=== PATIENT | male | born 1960 | race Caucasian/White ===

== ENCOUNTER 2024-09-14 06:45 | Outpatient (CLI) | payer MEDICARE, SELFPAY ==
--- OUTSIDE RECORDS SUMMARY | 2024-09-14 07:07 | XMS_ITS | Clinical Summary ---
Author Organization [facility] Address [address] [place] [address] Care Team Providers Care Exterminator Helper Termite Name Role Phone Sharmin Potter Primary Care Provider [phone] Allergies No known active allergies Medications B-D 3cc Luer-Hol[place] Syr 25Gx1 3 mL 25 gauge x 1 syrgIndications:L ow testosterone Use for injecting Testosterone once weekly. 12 Each 04/10/19 Active testosterone cypionate (DEPO-TESTOSTERON E) 200 mg/mL injectionIndicati ons:Low testosterone Inject 100 mg intramuscular once weekly. 10 mL 06/06/19 Active Additional Information Patient taking differently:100 mg Intra-MuscularQ SUN, Informant: Patient's Recall, Reported on 08/27/2024 Syringe with Needle, Disp, (B-D 3cc Luer-Holland Syr 25Gx1) 3 mL 25 gauge x 1 syrgIndications:L ow testosterone As directed. 12 Each 06/06/19 Active Drift Disp [place] 18Gx1 18 gauge x 1 ndleIndications:L ow testosterone use the 18 guage needle to draw up the testosterone 12 Each 06/18/19 Active doxycycline 100 mg tabletIndications :Other acne TAKE 1 TABLET (100MG) BY MOUTH ONCE DAILY 90 Tablet 04/19/19 Active amoxicillin 500 mg capsule Take 2,000 mg by mouth one time if needed. 1 hour before procedure 02/09/20 Active escitalopram oxalate 10 mg tabletIndications :Anxiety with depression Take 1 Tablet (10 mg) by mouth once daily in the morning. 30 Tablet 07/15/19 25 026 Active lisinopriL 20 mg tabletIndications :Essential hypertension Take 1 Tablet (20 mg) by mouth once daily. 90 Tablet 3 07/15/19 25 026 Active tadalafiL 20 mg tabletIndications :Erectile dysfunction of organic origin Take 1 Tablet (20 mg) by mouth once daily if needed for Erectile Dysfunction. Take 30 minutes before sexual activity. 30 Tablet 11 07/15/19 25 Active predniSONE 20 mg tabletIndications :Lumbar back pain with radiculopathy affecting lower extremity Take 3 Tablets (60 mg) by mouth once daily with a meal for 3 days, THEN 2 Tablets (40 mg) once daily with a meal for 3 days, THEN 1 Tablet (20 mg) once daily with a meal for 4 days. 19 Tablet 08/17/19 25 025 Active Problems Problem Noted Date Diagnosed Date Polyp of colon, due 202607/14/2023 Overview (07/15/2023): Due 2026 Two 5 mm tubular adenomas in the transverse colon 4 mm sessile serrated polyp in the sigmoid colon Recurrent major depressive disorder, in full rem ission 06/04/2023 Essential hypertension 01/07/2021 Erectile dysfunction of organic origin 9 Hyperlipidemia, unspecified 08/14/2017 Long-term current use of testosterone replacemen t therapy 07/31/2017 Hormone replacement therapy 07/31/2017 Benign localized hyperplasia of prostate 018 Acromioclavicular osteoarthritis 12/16/2011 Glenohumeral arthritis 12/16/2011 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 Antonio Waggoner, Secondary No Pcp Ok to fill at same amount/dose/frequency in my absence. Controlled substance agreement: 05/21/12 LEAD C DEVELOPER query on 04/29/2022 Last UDS on 08/27/21 Screen for colon cancer 07/23/201106/17 Overview (07/23/2011): Colonoscopy 07/2011 normal repeat in 10 years Arthropathy of shoulder region 01/24/2010 07/14/2024 Benign prostatic hyperplasia with elevated prostate specific antigen (PSA) 07/15/19 25 Overview (10/25/2020): TRUS biopsy 09/2020 Encounters Date Type Department Care Team Description 09/13/2024 2:20 PM CDT Office Visit [facility] [address] [place] [address] Wen'Clarita Ledesma, OD Contact Lenses (Recheck) 09/13/2024 Travel 09/08/2024 Travel 08/27/2024 11:00 AM CDT Office Visit [facility] [address] [place] [address] Antonio Waggoner MD Musculoskeletal Problem (Bilateral Hips and legs, MRI before appt) 08/27/2024 Travel 08/24/2024 12:30 PM CDT Ancillary Procedure [facility] [address] [facility] [address] [place] [address] 08/23/2024 Travel 08/20/2024 10:20 AM CDT Office Visit [facility] [address] [place] [address] Wen'Clarita Ledesma, OD Contact Lenses (Dispense ) 08/20/2024 Travel 08/19/2024 Telephone [facility] [address] [place] [address] Wen'Clarita Ledesma, OD Contact Lenses 08/16/2024 E-Visit [address] [place] [facility] [place] [address] Sharmin Potter PA Severe Cronic Nerve Pain 08/13/2024 8:00 AM CDT Office Visit [facility] [address] [place] [address] Clarita Jules, OD Eye Exam (CEE: CL) 08/13/2024 Telephone [facility] [address] [place] [address] Clarita Jules, OD 08/13/2024 Travel 07/15/2024 10:35 AM CDT Office Visit [address] [place] [address] Sharmin Potter PA Follow Up (Patient is here to get a injection on bilateral hip ) 07/14/2024 12:10 PM CDT Ancillary Procedure [address] [place] [address] 07/14/2024 12:05 PM CDT Ancillary Procedure [address] [place] [address] 07/14/2024 11:00 AM CDT Office Visit [address] [place] [address] Sharmin Potter PA Establish Care; Physical (Patein is here to established care - patient state he has been having some problems at night with his legs - can't sleep at night ) 07/14/2024 Travel from Last 3 Months Immunizations Immunization Administration Dates Next Due Influenza, IIV4 (=>6mos) MDV 12/17/2018 Td (Age >=7 Years) 02/26/2022 Tdap 07/31/2006 Tuberculin Skin Test, Unspecified 11/01/1963 Family History Medical History Relation Name Comments Heart Disease Father Cancer-breast Mother Relation Name Status Comments Father Alive Mother Alive Social History Tobacco Use Types Packs/Day Years Used Date Smoking Tobacco: Never Smokeless Tobacco: Never Tobacco Cessation:Counseling Given: Not Answered Alcohol Use Standard Drinks/Week Comments Yes 5 (1 standard drink = 0.6 oz pur e alcohol) PHQ-2 Answer Date Recorded PHQ-2 TOTAL SCORE 3 07/14/2024 Social Connections Answer Date Recorded Do you often feel lonely or isolated from those around you? 0 12/30/2023 Financial Resource Strain Answer Date R ecorded Difficulty of Paying Living Expenses 3 12/10/2023 Difficulty of Paying Living Expenses Not on file 12/10/2023 Food Insecurity Answer Date Recorded Do you worry your food will run out before you are able to buy more? 1 12/30/2023 Transportation Needs Answer Date Record ed Does lack of transportation keep you from medica l appointments? 1 12/30/2023 Does lack of transportation keep you from work, meetings or getting things that you need? 1 12/30/2023 Housing Stability Answer Date Recorded What is your housing situation today? 1 12/30/2023 Utilities Answer Date Recorded Do you have trouble paying f or utilities (for example, heat, electricity, water, phone)? 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 Not on file Not on file Not o n file Obstetrics History Last Filed Vital Signs Vital Sign Reading Time Taken Comments Blood Pressure 147/83 08/27/2024 11:00 AM CDT Pulse 77 08/27/2024 11:00 AM CDT Temperature 36.6 C (97.9 F) 12/09/2023 4:40 PM CDT Respiratory Rate 18 12/09/2023 4:40 PM CDT Oxygen Saturation 100% 08/27/2024 11:00 AM CDT Inhaled Oxygen Concentration - - Weight 98.2 kg (216 lb 6.4 oz) 08/27/2024 11:00 AM CDT Height 188 cm (6' 2) 07/15/2024 10:12 AM CDT Body Mass Index 27.78 07/15/2024 10:12 AM CDT Plan of Treatment Upcoming Encounters Date Type Department Care Team (Late st Contact Info) Description 09/14/2024 7:20 AM CDT Office Visit [facility] [address] [place] [address] Antonio Waggoner MD [address] [place] [address] Arrived 09/23/2024 8:15 AM CDT Appointment ANW EMG/EEG/EP [address] [facility] [address] [place] [address] Annemarie Dickson MD [address] [place] [address] Thao Jovel [address] [address] 10/04/2024 2:20 PM CDT Office Visit [facility] [address] [place] [address] Antonio Waggoner MD [address] [place] [address] Health Maintenance Due Date Last Done Comments Pneumococcal series for age 50+ (1 of 1 - PCV) 2008 Zoster (shingles) series for age 50+ (1 of 2) 2008 COVID-19 vaccine series ( - season) 2023 Influenza Vaccine (#1) 2024 12/17/2018 BMI (ht and wt on same day) for age 18+ 07/15/2025 07/15/2024, 07/14/2024, 12/31/2023, Additional history exists Depression screening for age 12+ 07/15/2025 07/15/2024, 07/14/2024, 01/15/2023, Additional history exists Medicare Wellness for age 65+ 07/15/2025 07/14/2024 Colonoscopy through age 75 07/13/2026 07/14/2023, Lipids for age 45-75 07/15/2029 07/15/2024, 12/31/2023, 06/04/2023, Additional history exists Tetanus booster 02/27/2032 02/26/2022, 07/31/2006 RSV vaccine for adults or (1 - 1-dose 75+ series) 2033 HIV for age 15-65 Completed 06/04/2023 Hepatitis C screening for age 18-79 Completed 06/04/2023 Hepatitis B series for 19+ Aged Out N o longer eligible based on patient's age to complete this topic Medical Devices Implanted Type Area Education Consultant Device Identifier Shelf Expiration Date Model / Serial / Lot Post Shoulder Glenoid 6.5x35mm Perform+ Rev - [id number] Implanted:Qty: 1 on 03/13/2022 by Timothy Singh MD at [facility] Right: Shoulder [employer] [id number] / / Screw Shoulder 34mm Perform+ Periph - [id number] Implanted:Qty: 1 on 03/13/2022 by Timothy Singh MD at [facility] Right: Shoulder [employer] [id number] / / Baseplate Glenoid 29mm 15 Deg Perform+ Full Wedge - [id number] Implanted:Qty: 1 on 03/13/2022 by Timothy Singh MD at [facility] Right: Shoulder [employer] 01/04/2027 [id number] / [id number] / Screw Shoulder 26mm Perform+ Periph - [id number] Implanted:Qty: 1 on 03/13/2022 by Timothy Singh MD at [facility] Right: Shoulder [employer] [id number] / / Glenoid 42mm Perform+ Rev - [id number] Implanted:Qty: 1 on 03/13/2022 by Timothy Singh MD at [facility] Right: Shoulder [employer] 06/10/2024 [id number] / [id number] / Baseplate Hum Sz 0 Ascend Rev Flex Hi Off - [id number] Implanted:Qty: 1 on 03/13/2022 by Timothy Singh MD at [facility] Right: Shoulder [employer] 02/04/2027 [id number] / [id number] / Stem Hum Sz 5b Ascend Flex Std - [id number] Implanted:Qty: 1 on 03/13/2022 by Timothy Singh MD at [facility] Right: Shoulder [employer] 10/12/2026 [id number] / [id number] / Liner Hum Sz 42mm +6 Ascend Flex - [id number] Implanted:Qty: 1 on 03/13/2022 by Timothy Singh MD at [facility] Right: Shoulder [employer] 07/12/2025 [id number] / [id number] / Procedures Procedure Name Priority Date/Time Associated Diagnosis Comments AMB EPIDURAL STEROID INJECTION Routine 09/14/2024 6:50 AM CDT Annular tear of lumbar disc Lumbar radiculopathy Primary osteoarthritis of right hip MR SPINE LUMBAR WO Routine 08/24/2024 12 :49 PM CDT Lumbar back pain with radiculopathy affecting lower extremity LIPID PANEL W REFLEX MEASURED LDL Routine 07/15/2024 9:54 AM CDT Medicare annual wellness visit, subsequent Hyperlipidemia, unspecified hyperlipidemia type HEMOGLOBIN A1C Routine 07/15/2024 9:54 AM CDT Medicare annual wellness visit, subsequent Diabetes mellitus screening Prediabetes COMP METABOLIC PANEL Routine 07/15/2024 9:54 AM CDT Essential hypertension Hormone replacement therapy Testosterone deficiency in male ESTRADIOL Routine 07/15/2024 9:54 AM CDT Hormone replacement therapy Testosterone deficiency in male TESTOSTERONE BIOAVAILABLE & FREE Routine 07/15/2024 9:54 AM CDT Hormone replacement therapy Erectile dysfunction of organic origin Testosterone deficiency in male TSH Routine 07/15/2024 9:54 AM CDT Hormone replacement therapy Testosterone deficiency in male T3,TOTAL Routine 07/15/2024 9:54 AM CDT Hormone replacement therapy Testosterone deficiency in male FERRITIN Routine 07/15/2024 9:54 AM CDT Hormone replacement therapy Testosterone deficiency in male T4,FREE Routine 07/15/2024 9:54 AM CDT Hormone replacement therapy Testosterone deficiency in male PSA TOTAL Routine 07/15/2024 9:54 AM CDT Prostate cancer screening PROGESTERONE Routine 07/15/2024 9:54 AM CDT Hormone replacement therapy Testosterone deficiency in male VITAMIN B12 Routine 07/15/2024 9:54 AM CDT Fatigue, unspecified type XR HIP 2 VIEWS W PELVIS BILAT ED 07/14/2024 12:24 PM CDT Lumbar back pain XR SPINE LUMBAR 3 VIEWS ED 07/14/2024 12:18 PM CDT Lumbar back pain COLONOSCOPY 07/14/2023 8:04 AM CDT ANTI HIV 1/2 Routine 06/04/2023 10:46 AM CDT Screening for HIV (human immunodeficiency virus) ANTI HCV Routine 06/04/2023 10:46 AM CDT Need for hepatitis C screening test from Last 3 Months or Most Recently Relevant to Health Maintenance Results * MR SPINE LUMBAR WO (08/24/2024 12:49 PM CDT) Anatomical Region Laterality Modality Spine, LUMBAR SPINE Magnetic Res onance 08/24/2024 3:07 PM CDT Impressions 08/24/2024 3:07 PM CDT 1. Normal alignment. No fractures 2. Lumbar spondylosis. 3. At L4-5, mild narrowing of the bilateral neural foramina 4. At L5-S1, posterior disc bulge and tiny central annular fissure. No narrowing of the spinal canal. Mild narrowing of the bilateral neural foramina Dictated by Miguel Ángel Yadav MD @ 08/24/2024 3:07:52 PM (Electronically Signed) Narrative 08/24/2024 3:07 PM CDT For Patients: As a result of the 21st Century Cures Act, medical imaging exams and procedure reports are released immediately into your electronic medical record. You may view this report before your referring provider. If you have questions, please contact your health care provider. INDICATION: Low back pain. COMPARISON: 07/14/2024. TECHNIQUE: Sagittal T1, T2, and STIR sequences. Axial T1 and T2 weighted sequences. FINDINGS: Normal vertebral body alignment. No fractures. No vertebral body loss of height. No ligamentous injury. No suspicious osseous lesions. Vertebral body hemangiomas L3 and L5. Normal conus terminates at L1. T12-L1: No spinal canal or neural foraminal narrowing. L1-2: Disc degeneration and loss disc height. No narrowing of spinal canal. No neural foraminal narrowing. L2-3: Disc degeneration. No spinal canal or neural foraminal narrowing. L3-4: Disc degeneration and posterior disc bulge. No narrowing of the spinal canal. No neural foraminal narrowing. L4-5: Disc degeneration and tiny central annular fissure. No narrowing of spinal canal. Mild narrowing of bilateral foramina. L5-S1: Posterior disc bulge. Tiny central annular fissure. No narrowing of spinal canal. No impingement of the traversing S1 nerve roots. Mild narrowing of bilateral foramina. Mild facet arthropathy. Normal visualized SI joints. Normal paraspinal soft tissues. Procedure Note Miguel Ángel Yadav MD, PhD - 08/24/2024 For Patients: As a result of the Cures Act, medical imagingexams and procedure reports are released immediately into your electronicmedical record. You may view this report before your referring provider.If you have questions, please contact your health care provider. INDICATION: Low back pain. COMPARISON: 07/14/2024. TECHNIQUE: Sagittal T1, T2, and STIR sequences. Axial T1 and T2 weighted sequences. FINDINGS: Normal vertebral body alignment. No fractures. No vertebral body loss ofheight. No ligamentous injury. No suspicious osseous lesions. Vertebralbody hemangiomas L3 and L5. Normal conus terminates at L1. T12-L1: No spinal canal or neural foraminal narrowing. L1-2: Disc degeneration and loss disc height. No narrowing of spinalcanal. No neural foraminal narrowing. L2-3: Disc degeneration. No spinal canal or neural foraminal narrowing. L3-4: Disc degeneration and posterior disc bulge. No narrowing of thespinal canal. No neural foraminal narrowing. L4-5: Disc degeneration and tiny central annular fissure. No narrowing ofspinal canal. Mild narrowing of bilateral foramina. L5-S1: Posterior disc bulge. Tiny central annular fissure. No narrowing ofspinal canal. No impingement of the traversing S1 nerve roots. Mildnarrowing of bilateral foramina. Mild facet arthropathy. Normal visualized SI joints. Normal paraspinal soft tissues. IMPRESSION: 1. Normal alignment. No fractures 2. Lumbar spondylosis. 3. At L4-5, mild narrowing of the bilateral neural foramina 4. At L5-S1, posterior disc bulge and tiny central annular fissure. Nonarrowing of the spinal canal. Mild narrowing of the bilateral neuralforamina Dictated by Miguel Ángel Yadav MD @ 08/24/2024 3:07:52 PM (Electronically Signed) Sharmin ENGLE Final Res ult * (ABNORMAL) TESTOSTERONE BIOAVAILABLE & FREE (07/15/2024 9:54 AM CDT) Pathologist [facility] ALBUMIN 4.8 3.6 - 5.1 g/dL [facility] SEX HORMONE BINDING GLOBULIN 23 22 - 77 nmol/L [facility] TESTOSTERONE, FREE 38.8(L) 46.0 - 224.0 pg/mL [facility] TESTOSTERONE,BIOA VAILABLE 84.8(L) 110.0 - 575.0 ng/dL [facility] TESTOSTERONE, TOTAL, MS 242(L) 250 - 1,100 ng/dL [facility] Comment: Men with clinically significant hypogonadal symptoms and testosterone values repeatedly in the range of the 200-300 ng/dL or less, may benefit from testosterone treatment after adequate risk and benefits counseling. For additional information, please refer to https://education.MetaModix.SpiralFrog/faq/TAY327 (This link is being provided for informational/educational purposes only.) (Note) This test was developed and its analytical performance characteristics have been determined by [employer] It has not been cleared or approved by the FDA. This assay has been validated pursuant to the CLIA regulations and is used for clinical purposes. [facility] [address] [address],[address] [place] [address] Chandrakant Frazier MD, PhD Blood BLOOD SPECIMEN / Unknown 07/15/2024 9:54 AM CDT 07/15/2024 9:54 AM CDT Sharmin ENGLE SEND OUTS Final Res ult [facility] [address] [place] [id number], [facility] [address] [address], [address] [place] [address] * HEMOGLOBIN A1C (07/15/2024 9:54 AM CDT) HEMOGLOBIN A1C 5.3 <5.7 % [facility] Comment: For the purpose of screening for the presence of diabetes: <5.7% Consistent with the absence of diabetes 5.7-6.4% Consistent with increased risk for diabetes (prediabetes) > or =6.5% Consistent with diabetes This assay result is consistent with a decreased risk of diabetes. Currently, no consensus exists regarding use of hemoglobin A1c for diagnosis of diabetes in children. According to [place] Diabetes Association (ADA) guidelines, hemoglobin A1c <7.0% represents optimal control in non- diabetic patients. Different metrics may apply to specific patient populations. Standards of Medical Care in Diabetes(ADA). Blood BLOOD SPECIMEN / Unknown 07/15/2024 9:54 AM CDT 07/15/2024 9:54 AM CDT Sharmin ENGLE CHEMISTRY Final Res ult [facility] [address] [place] [address], [place] [phone] [facility] [address] [place] [address] * (ABNORMAL) LIPID PANEL W REFLEX MEASURED LDL (07/15/2024 9:54 AM CDT) CHOLESTEROL, TOTAL 232(H) <200 mg/dL [facility] HDL CHOLESTEROL 73 > OR = 40 mg/dL [facility] TRIGLYCERIDES 145 <150 mg/dL [facility] LDL-CHOLESTEROL 133(H) mg/dL (calc) [facility] Comment: Reference range: <100 Desirable range <100 mg/dL for primary prevention; <70 mg/dL for patients with CHD or diabetic patients with > or = 2 CHD risk factors. LDL-C is now calculated using the Ben calculation, which is a validated novel method providing better accuracy than the Friedewald equation in the estimation of LDL-C. Edwin SS et al. ANGELY. 2013;310(19): 0335-7994 (http://education.BraveNewTalent/faq/MED339) CHOL/HDLC RATIO 3.2 <5.0 (calc) [facility] NON HDL CHOLESTEROL 159(H) <130 mg/dL (calc) [facility] Comment: For patients with diabetes plus 1 major ASCVD risk factor, treating to a non-HDL-C goal of <100 mg/dL (LDL-C of <70 mg/dL) is considered a therapeutic option. Blood BLOOD SPECIMEN / Unknown 07/15/2024 9:54 AM CDT 07/15/2024 9:54 AM CDT Sharmin ENGLE CHEMISTRY Final Res ult [facility] [address] [place] [address], [facility] [address] [place] [address] * TSH (07/15/2024 9:54 AM CDT) Pathologist [facility] TSH 0.69 0.40 - 4.50 mIU/L [facility] Blood BLOOD SPECIMEN / Unknown 07/15/2024 9:54 AM CDT 07/15/2024 9:54 AM CDT Sharmin ENGLE CHEMISTRY Final Res ult Performing Organization Address [facility]/State/ZIP Co de Phone Number [facility] [address] [place] [address], [place] [phone] [facility] [address] [place] [address] * T3,TOTAL (07/15/2024 9:54 AM CDT) T3, TOTAL 99 76 - 181 ng/dL [facility] Blood BLOOD SPECIMEN / Unknown 07/15/2024 9:54 AM CDT 07/15/2024 9:54 AM CDT Sharmin ENGLE CHEMISTRY Final Res ult Performing Organization Address [facility]/ZIP Co de Phone Number [facility] [address] [place] [address], [place] [phone] [facility] [address] [place] [address] * T4,FREE (07/15/2024 9:54 AM CDT) T4, FREE 1.1 0.8 - 1.8 ng/dL [facility] Blood BLOOD SPECIMEN / Unknown 07/15/2024 9:54 AM CDT 07/15/2024 9:54 AM CDT Sharmin ENGLE CHEMISTRY Final Res ult [facility] [address] [place] [address], [place] [phone] [facility] [address] [place] [address] * (ABNORMAL) PSA TOTAL (07/15/2024 9:54 AM CDT) PSA, TOTAL 4.98(H) < OR = 4.00 ng/mL [facility] Comment: The total PSA value from this assay system is standardized against the WHO standard. The test result will be approximately 20% lower when compared to the equimolar-standardized total PSA (Juan Manuel Dinosaur). Comparison of serial PSA results should be interpreted with this fact in mind. This test was performed using the Siemens chemiluminescent method. Values obtained from different assay methods cannot be used interchangeably. PSA levels, regardless of value, should not be interpreted as absolute evidence of the presence or absence of disease. Blood BLOOD SPECIMEN / Unknown 07/15/2024 9:54 AM CDT 07/15/2024 9:54 AM CDT Sharmin ENGLE CHEMISTRY Final Res ult [facility] [address] [place] [address], [place] [phone] [facility] [address] [place] [address] * PROGESTERONE (07/15/2024 9:54 AM CDT) [facility] PROGESTERONE <0.5 <1.4 ng/mL [facility] Blood BLOOD SPECIMEN / Unknown 07/15/2024 9:54 AM CDT 07/15/2024 9:54 AM CDT Sharmin ENGLE SEND OUTS Final Res ult [facility] [address] [place] [address], [place] [phone] [facility] [address] [place] [address] * FERRITIN (07/15/2024 9:54 AM CDT) [facility] FERRITIN 100 24 - 380 ng/mL [facility] Blood BLOOD SPECIMEN / Unknown 07/15/2024 9:54 AM CDT 07/15/2024 9:54 AM CDT Sharmin ENGLE CHEMISTRY Final Res ult Performing Organization Address [facility]/ZIP Co de Phone Number [facility] [address] [place] [address], [place] [phone] [facility] [facility] [address] [place] [address] * ESTRADIOL (07/15/2024 9:54 AM CDT) [facility] ESTRADIOL 29 < OR = 39 pg/mL [employer] Comment: Reference range established on post-pubertal patient population. No pre-pubertal reference range established using this assay. For any patients for whom low Estradiol levels are anticipated (e.g. males, pre-pubertal children and hypogonadal/post-menopausal females), the [employer] [facility] Estradiol, Ultrasensitive, LCMSMS assay is recommended (order code 34777). Please note: patients being treated with the drug fulvestrant (Faslodex(R)) have demonstrated significant interference in immunoassay methods for estradiol measurement. The cross reactivity could lead to falsely elevated estradiol test results leading to an inappropriate clinical assessment of estrogen status. [employer] order code [id number], Ultrasensitive LC/MS/MS demonstrates negligible cross reactivity with fulvestrant. Blood BLOOD SPECIMEN / Unknown 07/15/2024 9:54 AM CDT 07/15/2024 9:54 AM CDT Sharmin ENGLE SEND OUTS Final Res ult Performing Organization Address [facility]/ZIP Co de Phone Number [facility] [address] [place] [address], [place] [phone] [facility] [address] [place] [address] * VITAMIN B12 (07/15/2024 9:54 AM CDT) VITAMIN B12 282 200 - 1,100 pg/mL [employer] Comment: Please Note: Although the reference range for vitamin B12 is 200-1100 pg/mL, it has been reported that between 5 and 10% of patients with values between 200 and 400 pg/mL may experience neuropsychiatric and hematologic abnormalities due to occult B12 deficiency; less than 1% of patients with values above 400 pg/mL will have symptoms. Blood BLOOD SPECIMEN / Unknown 07/15/2024 9:54 AM CDT 07/15/2024 9:54 AM CDT us Sharmin ENGLE CHEMISTRY Final Res ult [employer] [facility] [address] [place] [address], [facility] [address] [place] [address] * COMP METABOLIC PANEL (07/15/2024 9:54 AM CDT) Pathologist [facility] GLUCOSE 75 65 - 99 mg/dL [employer] Comment: Fasting reference interval UREA NITROGEN (BUN) 16 7 - 25 mg/dL [facility] CREATININE 1.03 0.70 - 1.35 mg/dL [facility] EGFR 81 > OR = 60 mL/min/1. 73m2 [employer] BUN/CREATININE RATIO SEE NOTE: 6 (calc) [facility] Comment: Not Reported: BUN and Creatinine are within reference range. SODIUM 141 135 - 146 mmol/L [facility] POTASSIUM 4.8 3.5 - 5.3 mmol/L [facility] CHLORIDE 102 98 - 110 mmol/L [facility] CARBON DIOXIDE 30 20 - 32 mmol/L [facility] CALCIUM 9.8 8.6 - 10.3 mg/dL [facility] PROTEIN, TOTAL 7.5 6.1 - 8.1 g/dL [facility] ALBUMIN 4.8 3.6 - 5.1 g/dL [facility] GLOBULIN 2.7 1.9 - 3.7 g/dL (calc) [facility] ALBUMIN/GLOBULIN RATIO 1.8 1.0 - 2.5 (calc) [facility] BILIRUBIN, TOTAL 1.0 0.2 - 1.2 mg/dL [facility] ALKALINE PHOSPHATASE 57 35 - 144 U/L [facility] AST 23 10 - 35 U/L [facility] ALT 19 9 - 46 U/L [facility] Blood BLOOD SPECIMEN / Unknown 07/15/2024 9:54 AM CDT 07/15/2024 9:54 AM CDT Sharmin ENGLE CHEMISTRY Final Res ult Performing Organization Address City/State/[facility] Co de Phone Number [facility] [address] [place] [address], [facility] [address] [place] [address] * XR HIP 2 VIEWS W PELVIS BILAT (07/14/2024 12:24 PM CDT) Anatomical Region Laterality Modality HIPS, HIPL, HIPR, Pelvis Digital Radiography 07/14/2024 2:36 PM CDT Narrative 07/14/2024 2:36 PM CDT For Patients: As a result of the Century Cures Act, medical imaging exams and procedure reports are released immediately into your electronic medical record. You may view this report before your referring provider. If you have questions, please contact your health care provider. INDICATION: Lumbar back pain TECHNIQUE: Three views of the hips FINDINGS/IMPRESSION: Normal alignment. No acute fracture or acute osseous abnormalities are visualized. Mild degenerative change of both hips. Dictated by Leticia Howard MD @ 07/14/2024 2:36:15 PM (Electronically Signed) Procedure Note Leticia Howard MD - 07/14/2024 For Patients: As a result of the Cures Act, medical imagingexams and procedure reports are released immediately into your electronicmedical record. You may view this report before your referring provider.If you have questions, please contact your health care provider. INDICATION: Lumbar back pain TECHNIQUE: Three views of the hips FINDINGS/IMPRESSION: Normal alignment. No acute fracture or acute osseous abnormalities arevisualized. Mild degenerative change of both hips. Dictated by Leticia Howard MD @ 07/14/2024 2:36:15 PM (Electronically Signed) us Sharmin ENGLE GENERAL IMAGING Final Res ult * XR SPINE LUMBAR 3 VIEWS (07/14/2024 12:18 PM CDT) Anatomical Region Laterality Modality LUMBAR SPINE Digital Radiogra phy 07/14/2024 2:33 PM CDT Narrative 07/14/2024 2:33 PM CDT For Patients: As a result of the s Act, medical imaging exams and procedure reports are released immediately into your electronic medical record. You may view this report before your referring provider. If you have questions, please contact your health care provider. INDICATION: Lumbar back pain TECHNIQUE: Three views of the lumbar spine FINDINGS/IMPRESSION: Normal alignment. No acute fracture or acute osseous abnormalities are visualized. Minimal spondylosis. No spondylolisthesis or spondylolysis. No fractures. Mild degenerative change of both hips Dictated by Leticia Howard MD @ 07/14/2024 2:33:09 PM (Electronically Signed) Procedure Note Leticia Howard MD - 07/14/2024 For Patients: As a result of the s Act, medical imagingexams and procedure reports are released immediately into your electronicmedical record. You may view this report before your referring provider.If you have questions, please contact your health care provider. INDICATION: Lumbar back pain TECHNIQUE: Three views of the lumbar spine FINDINGS/IMPRESSION: Normal alignment. No acute fracture or acute osseous abnormalities arevisualized. Minimal spondylosis. No spondylolisthesis or spondylolysis. Nofractures. Mild degenerative change of both hips Dictated by Leticia Howard MD @ 07/14/2024 2:33:09 PM (Electronically Signed) us Sharmin Salud [place] ENGLE GENERAL IMAGING Final Res ult * COLONOSCOPY (07/14/2023 8:04 AM CDT) 07/14/2023 8:04 AM CDT Narrative Transcriptions Tristan Martin MD - 07/14/2023 8:44 AM CDT Endoscopy Patient Name: Masoud Lepe Procedure Date: 07/14/2023 Gender: Male Date of : 1960 Admit Type: Outpatient Procedure: Colonoscopy Proceduralist: Tristan Martin MD Referring MD: Epifanio Lopez Indications/Pre-Op Diagnosis: Screening for malignant neoplasm in theuvalde Medications: Monitored Anesthesia Care Procedure Description: The patient had risks, benefits and alternatives explained to andgave informed consent. The patient had a stable cardiopulmonary status and judged an adequate candidate for conscious sedation. The endoscope [id number] was passed through the anus andadvanced to the cecum, identified by appendiceal orifice and ileocecal valve.The colonoscopy was performed without difficulty. The patient toleratedthe procedure well. The quality of the bowel preparation was good. The ileocecal valve, appendiceal orifice, and rectum were photographed. Complications: No immediate complications. Estimated Blood Loss & Specimen: Estimated blood loss was minimal. Specimen collected: Yes and sent to Laboratory Findings: The perianal and digital rectal examinations were normal. Two semi-sessile polyps were found in the transverse colon. Thepolyps were 5 mm in size. These polyps were removed with a hot snare.Resection and retrieval were complete. A 4 mm polyp was found in the sigmoid colon. The polyp was sessile.The polyp was removed with a hot snare. Resection and retrieval were complete. The exam was otherwise without abnormality. Impressions/Post-Op Diagnosis: - Two 5 mm polyps in the transverse colon, removed with a hot snare. Resected and retrieved. - One 4 mm polyp in the sigmoid colon, removed with a hot snare. Resected and retrieved. - The examination was otherwise normal. Recommendation: - Follow up colonoscopy recommendations will depend on the pathologyof the polyps. - A letter will be sent to the patient with pathology results andfuture screening colonoscopy recommendations. Tristan Martin MD 07/14/2023 8:44:17 AM This report has been signed electronically. Note Initiated On: 07/14/2023 8:04 AM Total Procedure Duration Time 0 hours 22 minutes 17 seconds Scope Withdrawal Time 0 hours 16 minutes 58 seconds Tristan Martin MD PROCEDURE ORD Final Result * ANTI HCV (06/04/2023 10:46 AM CDT) HEPATITIS C ANTIBODY Non-Reacti ve Non-React lynn 06/04/2023 8:49 PM CDT [facility] Comment:Please note, per www .CDC.gov: If a patient is known to be at high risk of HCV infection, or is symptomatic, and the physician's suspicion of HCV infection is high, HCV RNA testing is often employed and is of diagnostic value, even after an initial negative anti-HCV test result. Blood BLOOD SPECIMEN / Unknown Venipuncture / Unknown 06/04/2023 10:46 AM CDT 06/04/2023 10:46 AM CDT Epifanio Lopez MD SEND OUTS Final Result Performing Organization Address [facility]/ZIP Co de Phone Number [facility] [address] [place] [phone], [place] * ANTI HIV 1/2 [10167.0] (06/04/2023 10:46 AM CDT) HIV-1/HIV-2 SCREEN Non-Reacti ve Non-Reacti ve 06/04/2023 8:44 PM CDT [facility] Comment:HIV-1 p24 and HIV-1/ HIV-2 Ab Not Detected. Blood BLOOD SPECIMEN / Unknown Venipuncture / Unknown 06/04/2023 10:46 AM CDT 06/04/2023 10:46 AM CDT us Epifanio Lopez MD SEND OUTS Final Result Performing Organization Address [facility] Co de Phone Number [facility] [address] [place] [phone], [place] from Last 3 Months or Most Recently Relevant to Health Maintenance Insurance [employer]AGE MR Advance Directives * Full Code (Latest Code Status on File) Date Activated Date Inactivated Comments 07/14/2023 7:15 AM 07/14/2023 11:28 AM Question Answer Comments Code Status Discussion: Reviewed Preferences * Full Code Date Activated Date Inactivated Comments 03/13/2022 11:23 AM 03/13/2022 5:26 PM Question Answer Comments Code Status Discussion: Reviewed Preferences * Full Code Date Activated Date Inactivated Comments 03/13/2022 6:12 AM 03/13/2022 11:23 AM Question Answer Comments Code Status Discussion: Reviewed Preferences * Full Code Date Activated Date Inactivated Comments 01/11/2022 8:02 AM 01/13/2022 12:12 PM Question Answer Comments Code Status Discussion: Reviewed Preferences * Full Code Date Activated Date Inactivated Comments 01/10/2022 9:31 AM 01/11/2022 8:02 AM Question Answer Comments Code Status Discussion: Unable to Assess Preferences, Provider to review later Care Teams Exterminator [employer] Termite Relationship Specialty Start Date End Date Sharmin Potter PA [address] [place] [address] [place] [address] PCP - General Physician Oyster Worker 07/14/24
--- OUTSIDE RECORDS SUMMARY | 2024-09-15 00:29 | XMS_ITS | Clinical Summary ---
Author Organization [facility] Address [address] [place] [id number] Care Team Providers Care Mechanical Pencils Assembler Name Role Phone Sharmin Potter Primary Care Provider [phone] Allergies No known active allergies Medications B-D [...] testosterone As directed. 12 Each 06/06/19 Active Preston Disp Fowler 18Gx1 18 gauge x 1 ndleIndications:L ow [...] in my absence. Controlled substance agreement: 05/21/12 VISCOSITY TESTER query on 04/29/2022 Last UDS on 08/27/21 Screen for colon cancer 07/23/201106/17 Overview (07/23/2011): Colonoscopy 07/2011 normal repeat in 10 years Arthropathy of shoulder region 01/24/2010 07/14/2024 Benign prostatic hyperplasia with elevated prostate specific antigen (PSA) 07/15/19 25 Overview (10/25/2020): TRUS biopsy 09/2020 Encounters Date Type Department Care Team Description 09/14/2024 7:20 AM CDT Office Visit [facility] at [address] [address] Antonio Waggoner MD Procedure (L4-5 ILESI) 09/13/2024 2:20 PM CDT Office Visit [facility] [address] [place] [address] Wen'Clarita Ledesma, OD Contact Lenses (Recheck) 09/13/2024 Travel 09/08/2024 Travel 08/27/2024 11:00 AM CDT Office Visit [facility] [address] [place] [address] Antonio Waggoenr MD Musculoskeletal Problem (Bilateral Hips and legs, MRI before appt) 08/27/2024 Travel 08/24/2024 12:30 PM CDT Ancillary Procedure [facility] [address] [facility] [address] [place] [address] 08/23/2024 Travel 08/20/2024 10:20 AM CDT Office Visit [facility] [address] [place] [address] Wen'Clarita Ledesma, OD Contact Lenses (Dispense ) 08/20/2024 Travel 08/19/2024 Telephone [facility] [address] [place] [address] Clarita Jules, OD Contact Lenses 08/16/2024 E-Visit [address] [place] [address] Sharmin Potter PA Severe Cronic Nerve Pain 08/13/2024 8:00 AM CDT Office Visit [facility] [address] [place] [address] Clarita Jules, OD Eye Exam (CEE: CL) 08/13/2024 Telephone [facility] [address] [place] [address] Clarita Jules, OD 08/13/2024 Travel 07/15/2024 10:35 AM CDT Office Visit [address] [place] [address] Sharmin Potter PA Follow Up (Patient is here to get a injection on bilateral hip ) 07/14/2024 12:10 PM CDT Ancillary Procedure [address] [place] [address] 07/14/2024 12:05 PM CDT Ancillary Procedure [address] [place] [address] 07/14/2024 11:00 AM CDT Office Visit [address] [place] [address] Sharmin Potter PA Establish Care; Physical (Patein [...] on file 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 Gender Identity Not on file Sexual Orientation Not on file 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 Not on file Not on file [...] Care Team (Late st Contact Info) Description 09/23/2024 8:15 AM CDT Appointment ANW EMG/EEG/EP [address] [facility] [address] [place] [address] Annemarie Dickson MD [address] [place] [address] Thao Jovel [address] [facility] [address] [place] [address] 10/04/2024 2:20 PM CDT Office Visit [facility] [address] [place] [address] Antonio Waggoner MD [address] [place] [address] Health Maintenance Due Date Last Done Comments Pneumococcal series for age 50+ (1 of 1 - PCV) 2008 Zoster (shingles) series for age 50+ (1 of 2) 2008 COVID-19 vaccine series ( - 2023- season) 2023 Influenza Vaccine (#1) 2024 12/17/2018 [...] this topic Medical Devices Implanted Type Area Lawn Care Professional Device Identifier Shelf Expiration Date Model / Serial / Lot Post Shoulder Glenoid 6.5x35mm Perform+ Rev - [id number] Implanted:Qty: 1 on 03/13/2022 by Timothy Singh MD at [facility] Right: Shoulder [employer] [id number] / / Screw Shoulder 34mm Perform+ Periph - [id number] Implanted:Qty: 1 on 03/13/2022 by Timothy Singh MD at [facility] Right: Shoulder [employer] [id number] / / Baseplate Glenoid 29mm 15 Deg Perform+ Full Wedge - [id number] Implanted:Qty: 1 on 03/13/2022 by Timothy Singh MD at [facility] Right: Shoulder [employer] 01/04/2027 [id number] / [id number] / Screw Shoulder 26mm Perform+ Periph - [id number] Implanted:Qty: 1 on 03/13/2022 by Timothy Singh MD at [facility] Right: Shoulder [employer] [id number] / / Glenoid 42mm Perform+ Rev - [id number] Implanted:Qty: 1 on 03/13/2022 by Timothy Singh MD at [facility] Right: Shoulder [employer] 06/10/2024 [id number] / [id number] / Baseplate Hum Sz 0 Ascend Rev Flex Hi Off - [id number] Implanted:Qty: 1 on 03/13/2022 by Timothy Singh MD at [facility] Right: Shoulder [employer] 02/04/2027 [id number] / [id number] / Stem Hum Sz 5b Ascend Flex Std - [id number] Implanted:Qty: 1 on 03/13/2022 by Timothy Singh MD at [facility] Right: Shoulder [employer] 10/12/2026 [id number] / [id number] / Liner Hum Sz 42mm +6 Ascend Flex - [id number] Implanted:Qty: 1 on 03/13/2022 by Timothy Singh MD at [facility] Right: Shoulder [employer] 07/12/2025 [id number] / [id number] / Procedures Procedure Name Priority Date/Time Associated [...] a result of the Cures Act, medical imaging exams and procedure [...] result of the Century Cures Act, medical imagingexams and procedure reports [...] MD @ 08/24/2024 3:07:52 PM (Electronically Signed) us Sharmin ENGLE MR Final Res ult * (ABNORMAL) TESTOSTERONE BIOAVAILABLE & FREE (07/15/2024 9:54 AM CDT) [facility] ALBUMIN 4.8 3.6 - 5.1 g/dL [facility] [...] counseling. For additional information, please refer to https://education.[employer].com/faq/JFN247 (This link is being provided for informational/educational purposes only.) (Note) This test was developed and its analytical performance characteristics have been determined by [employer]. It has not been cleared or approved by the FDA. This assay has been validated pursuant to the CLIA regulations and is used for clinical purposes. [facility] med fusion [address] [address],[address] [facility] [address] Chandrakant Frazier MD, PhD Blood BLOOD SPECIMEN / Unknown 07/15/2024 9:54 AM CDT 07/15/2024 9:54 AM CDT Sharmin ENGLE SEND OUTS Final Res ult Performing Organization Address City/[facility]/ZIP Co de Phone Number [facility] [address] [address], [facility] [address] [address], [address] [place] [address] * HEMOGLOBIN A1C (07/15/2024 9:54 AM CDT) HEMOGLOBIN A1C 5.3 <5.7 % [facility] Comment: For the purpose of screening for the presence of diabetes: <5.7% Consistent with the absence of diabetes 5.7-6.4% Consistent with increased risk for diabetes (prediabetes) > or =6.5% Consistent with diabetes This assay result is consistent with a decreased risk of diabetes. Currently, no consensus exists regarding use of hemoglobin A1c for diagnosis of diabetes in children. According to [place] Diabetes Association (ADA) guidelines, hemoglobin A1c <7.0% represents optimal control in non- diabetic patients. Different metrics may apply to specific patient populations. Standards of Medical Care in Diabetes(ADA). Blood BLOOD SPECIMEN / Unknown 07/15/2024 9:54 AM CDT 07/15/2024 9:54 AM CDT Sharmin ENGLE CHEMISTRY Final Res ult [facility] [address] [place] [address], [place] [phone] [facility] [address] [place] [address] * (ABNORMAL) LIPID PANEL W REFLEX MEASURED [...] of LDL-C. Edwin SS et al. ANGELY. 2013;310(27): 8008-3087 (http://education.[employer]/faq/VRF701) CHOL/HDLC RATIO 3.2 <5.0 (calc) [facility] NON HDL CHOLESTEROL 159(H) <130 mg/dL (calc) [facility] Comment: For patients with diabetes plus 1 major ASCVD risk factor, treating to a non-HDL-C goal of <100 mg/dL (LDL-C of <70 mg/dL) is considered a therapeutic option. Blood BLOOD SPECIMEN / Unknown 07/15/2024 9:54 AM CDT 07/15/2024 9:54 AM CDT Sharmin ENGLE CHEMISTRY Final Res ult [employer] [facility] [address] [place] [address], [facility] [address] [place] [address] * TSH (07/15/2024 9:54 AM CDT) TSH 0.69 0.40 - 4.50 mIU/L [facility] Blood BLOOD SPECIMEN / Unknown 07/15/2024 9:54 AM CDT 07/15/2024 9:54 AM CDT Sharmin ENGLE CHEMISTRY Final Res ult [facility] [address] [place] [address], [place] [phone] [facility] [address] [place] [address] * T3,TOTAL (07/15/2024 9:54 AM CDT) Pathologist [facility] T3, TOTAL 99 76 - 181 ng/dL [facility] Blood BLOOD SPECIMEN / Unknown 07/15/2024 9:54 AM CDT 07/15/2024 9:54 AM CDT Sharmin ENGLE CHEMISTRY Final Res ult Performing Organization Address City/[facility]/ZIP Co de Phone Number [facility] [address] [facility] [place] [address], [place] [phone] [facility] [address] [facility] [place] [address] * T4,FREE (07/15/2024 9:54 AM CDT) [facility] T4, FREE 1.1 0.8 - 1.8 ng/dL [facility] Blood BLOOD SPECIMEN / Unknown 07/15/2024 9:54 AM CDT 07/15/2024 9:54 AM CDT Sharmin ENGLE CHEMISTRY Final Res ult [facility] [address] [facility] [place] [place] [address], [place] [phone] [facility] [address] [facility] [place] [address] * (ABNORMAL) PSA TOTAL (07/15/2024 9:54 AM CDT) PSA, TOTAL 4.98(H) < OR = 4.00 ng/mL [facility] Comment: The total PSA value from this assay system is standardized against the WHO standard. The test result will be approximately 20% lower when compared to the equimolar-standardized total PSA (Juan Manuel Kristian). Comparison of serial PSA results should be [...] ENGLE CHEMISTRY Final Res ult [facility] [address] [place] [address], [place] [phone] [facility] [address] [place] [address] * PROGESTERONE (07/15/2024 9:54 AM CDT) PROGESTERONE <0.5 <1.4 ng/mL [facility] Blood BLOOD SPECIMEN / Unknown 07/15/2024 9:54 AM CDT 07/15/2024 9:54 AM CDT Sharmin ENGLE SEND OUTS Final Res ult [facility] [address] [place] [address], [place] [phone] [facility] [address] [place] [address] * FERRITIN (07/15/2024 9:54 AM CDT) FERRITIN 100 24 - 380 ng/mL [facility] Blood BLOOD SPECIMEN / Unknown 07/15/2024 9:54 AM CDT 07/15/2024 9:54 AM CDT Sharmin ENGLE CHEMISTRY Final Res ult Performing Organization Address [facility]/ZIP Co de Phone Number [employer] [facility] [address] [facility] [place] [address], [place] [phone] [facility] [address] [place] [address] * ESTRADIOL (07/15/2024 9:54 AM CDT) ESTRADIOL 29 < OR = 39 pg/mL [facility] Comment: Reference range established on post-pubertal patient population. No pre-pubertal reference range established using this assay. For any patients for whom low Estradiol levels are anticipated (e.g. males, pre-pubertal children and hypogonadal/post-menopausal females), the [facility] Estradiol, Ultrasensitive, LCMSMS assay is recommended (order code 14640). Please note: patients being treated with the drug fulvestrant (Faslodex(R)) have demonstrated significant interference in immunoassay methods for estradiol measurement. The cross reactivity could lead to falsely elevated estradiol test results leading to an inappropriate clinical assessment of estrogen status. WITOI order code [id number]-Yxconurap, Ultrasensitive LC/MS/MS demonstrates negligible cross reactivity with fulvestrant. Blood BLOOD SPECIMEN / Unknown 07/15/2024 9:54 AM CDT 07/15/2024 9:54 AM CDT Sharmin ENGLE SEND OUTS Final Res ult Performing Organization Address [facility]/State/ZIP Co de Phone Number [employer] [facility] [address] [facility] [place] [address], [place] [phone] [facility] [address] [place] [address] * VITAMIN B12 (07/15/2024 9:54 AM CDT) VITAMIN B12 282 200 - 1,100 pg/mL [facility] Comment: Please Note: Although the [...] us Sharmin ENGLE CHEMISTRY Final Res ult [employer] [facility] [address] [place] [address], [facility] [address] [place] [address] * COMP METABOLIC PANEL (07/15/2024 9:54 AM CDT) [facility] GLUCOSE 75 65 - 99 mg/dL [facility] Comment: Fasting reference interval UREA NITROGEN (BUN) 16 7 - 25 mg/dL [facility] CREATININE 1.03 0.70 - 1.35 mg/dL [facility] EGFR 81 > OR = 60 mL/min/1. 73m2 [facility] BUN/CREATININE RATIO SEE NOTE: 6 - 22 (calc) [facility] Comment: Not Reported: BUN and Creatinine are within reference range. SODIUM 141 135 - 146 mmol/L [facility] POTASSIUM 4.8 3.5 - 5.3 mmol/L [facility] CHLORIDE 102 98 - 110 mmol/L [facility] CARBON DIOXIDE 30 20 - 32 mmol/L [facility] CALCIUM 9.8 8.6 - 10.3 mg/dL [facility] PROTEIN, TOTAL 7.5 6.1 - [...] CDT Sharmin ENGLE CHEMISTRY Final Res ult [employer] [facility] [address] [place] [address], [facility] [address] [place] [address] * XR HIP 2 VIEWS W PELVIS BILAT (07/14/2024 12:24 PM CDT) Anatomical Region Laterality Modality HIPS, HIPL, HIPR, Pelvis Digital Radiography 07/14/2024 2:36 PM CDT Narrative 07/14/2024 2:36 PM CDT For Patients: As a result of the Cures Act, medical imaging exams and procedure [...] MD @ 07/14/2024 2:36:15 PM (Electronically Signed) Sharmin ENGLE GENERAL IMAGING Final Res ult * XR SPINE LUMBAR 3 VIEWS (07/14/2024 12:18 PM CDT) Anatomical Region Laterality Modality LUMBAR SPINE Digital Radiogra phy 07/14/2024 2:33 PM CDT Narrative 07/14/2024 2:33 PM CDT For Patients: As a result of the Cures Act, medical imaging exams and procedure [...] 2:33:09 PM (Electronically Signed) us Sharmin Salud ENGLE GENERAL IMAGING Final Res ult * COLONOSCOPY (07/14/2023 8:04 AM CDT) 07/14/2023 8:04 AM CDT Narrative Transcriptions Tristan Martin MD - 07/14/2023 8:44 AM CDT Endoscopy Patient Name: Masoud Lepe Procedure Date: 07/14/2023 Gender: Male Date of : 1960 Admit Type: Outpatient Procedure: Colonoscopy Proceduralist: Tristan Martin MD Referring MD: Epifanio Lopez Indications/Pre-Op Diagnosis: Screening for malignant neoplasm in [facility] Medications: Monitored Anesthesia Care Procedure Description: The patient had risks, benefits and alternatives explained to andgave informed consent. The patient had a stable cardiopulmonary status and judged an adequate candidate for conscious sedation. The endoscope [id number] was passed through the anus andadvanced to [...] ve Non-React lynn 06/04/2023 8:49 PM CDT [facility] [employer] [facility] Comment:Please note, per www .CDC.gov: [...] Epifanio Lopez MD SEND OUTS Final Result [facility] [address] [place] [address], [place] * ANTI HIV 1/2 [80475.0] (06/04/2023 10:46 AM CDT) HIV-1/HIV-2 SCREEN Non-Reacti ve Non-Reacti ve 06/04/2023 8:44 PM CDT [facility] Comment:HIV-1 p24 and HIV-1/ HIV-2 Ab Not Detected. Blood BLOOD SPECIMEN / Unknown Venipuncture / Unknown 06/04/2023 10:46 AM CDT 06/04/2023 10:46 AM CDT us Epifanio Lopez MD SEND OUTS Final Result [facility] [address] [address], from Last 3 Months or Most Recently [...] Preferences, Provider to review later Care Teams Mechanical Pencils Assembler Relationship Specialty Start Date End Date Sharmin Potter PA [address] [place] [address] Dr [address] [facility] [place] [address] PCP - General Physician Kineseologist 07/14/24
== END 2024-09-14 06:46 | disposition home or self-care (01) ==
PROVIDERS: Visit Provider Family Medicine
DX: M54.16 Radiculopathy, lumbar region (principal); M51.369 Other intervertebral disc degeneration, lumbar region without mention of lumbar back pain or lower extremity pain
CPT/HCPCS: 62323; J0702; Q9966